=== PATIENT | female | born 1995 | race Caucasian/White ===

== ENCOUNTER 2019-06-26 01:03 | Emergency (ER) | payer OTHER ==
[~2019-06-26] VITALS: Ht 154.9 cm; Wt 48.2 kg
[2019-06-26] MEDS ORDERED: LEXAPRO20 MG PO (01:12)
[2019-06-26] MEDS ORDERED: SPRINTEC 35 MCG1 TAB PO (01:12)
[2019-06-26 01:49] LABS: BASO % 0.5 % (0.0-2.0); EOS # 0.1 (0.0-0.7); EOS % 0.8 % (0-4.0); GRAN # 4.6 (1.4-6.5); GRAN % 58.1 % (42.2-75.2); HEMATOCRIT 37.8 % (37.0-47.0); HEMOGLOBIN 12.6 g/dl (12.5-16.0); LYMPH # 2.7 (1.2-3.4); LYMPH % 34.1 % (20.0-51.0); MEAN CELL VOLUME 94 fl (80.0-100.0); MEAN CORPUSCULAR HEMOGLOBIN 31 pg (27.0-31.0); MEAN CORPUSCULAR HGB CONC 33 g/dl (33.0-37.0); MEAN PLATELET VOLUME 9.8 fl (7.4-10.4); MONO # 0.5 (0.1-0.6); MONO % 6.1 % (1.7-9.3); PLATELET COUNT 220 K/mm3 (130-400); RED BLOOD COUNT 4.02 M/mm3 (4.10-5.30); REDCELL DISTRIBUTION WIDTH-CV 12.5 % (11.5-14.5)
[2019-06-26 02:04] LABS: ALANINE AMINOTRANSFERASE 8 U/L (4-34); ALBUMIN 4.4 gm/dL (3.5-5.0); ALKALINE PHOSPHATASE 45 U/L (50-136); ANION GAP 9 mmol/L (7-16); AST,SGOT 27 U/L (15-37); BILIRUBIN,TOTAL 2.3 mg/dL (0.0-1.0); BLOOD UREA NITROGEN 14 mg/dL (7-17); CALCIUM 9.3 mg/dL (8.4-10.2); CARBON DIOXIDE 23 mmol/L (22-30); CHLORIDE 106 mmol/L (98-107); CREATININE, serum 0.63 (0.52-1.25); GLUCOSE 77 mg/dL (74-106); LIPASE 76 U/L (23-300); POTASSIUM 3.4 mmol/L (3.4-5.0); SODIUM 138 mmol/L (137-145); TOTAL PROTEIN 7.1 gm/dL (6.4-8.2)
[2019-06-26 02:08] LABS: C-REACTIVE PROTEIN < 0.5 mg/dL (0.0-0.9)
[2019-06-26 02:39] LABS: COLLECTION METHOD CLEAN CATCH
[2019-06-26 03:03] LABS: MUCOUS Present /lpf; PH 5 (5-8); URINE APPEARANCE Hazy; URINE BACTERIA None Seen /hpf; URINE BILIRUBIN Negative (NEGATIVE); URINE BLOOD Negative (NEGATIVE); URINE COLOR Yellow; URINE GLUCOSE Negative (NEGATIVE); URINE KETONE 2+ (NEGATIVE); URINE LEUKOCYTE ESTERASE 2+ (NEGATIVE); URINE NITRATE Negative (NEGATIVE); URINE PROTEIN(semi-quant) 2+ (NEGATIVE); URINE RBC 0-2 /hpf
[2019-06-26] MEDS ORDERED: ZOFRAN ODT4 MG PO (03:09)
[2019-06-26] MEDS ORDERED: OMNICEF 300MG300 MG PO (03:09)
[2019-06-26 03:22] VITALS: BP 116/76; PULSE 72; TEMP 98.6
== END 2019-06-26 03:22 | disposition home or self-care (01) ==
LOC: COL.ER 01:03
PROVIDERS: Physician Assistant
DX: N39.0 Urinary tract infection, site not specified (principal); R11.2 Nausea with vomiting, unspecified
CPT/HCPCS: J2405

== ENCOUNTER 2020-02-19 01:34 | Emergency (ER) | payer OTHER ==
[~2020-02-19] VITALS: Ht 154.9 cm; Wt 53.6 kg
[~2020-02-19 01:34] MED LIST: BENTYL 10MG10 MG/CAP PO; LEXAPRO20 MG PO; OMNICEF 300MG300 MG PO; PRILOSEC 20MG20 MG PO; SPRINTEC 35 MCG1 TAB PO; ZOFRAN ODT4 MG PO
[2020-02-19 01:43] VITALS: TEMP 98.3
[2020-02-19 02:25] LABS: STREP SCREEN NEGATIVE
[2020-02-19 03:45] LABS: COLLECTION METHOD CLEAN CATCH
[2020-02-19 04:05] LABS: AMORPHOUS CRYSTAL Present /uL; MUCOUS Present /lpf; PH 7 (5-8); URINE APPEARANCE Cloudy; URINE BACTERIA Rare /hpf; URINE BILIRUBIN Negative (NEGATIVE); URINE BLOOD Negative (NEGATIVE); URINE COLOR Yellow; URINE GLUCOSE Negative (NEGATIVE); URINE KETONE Negative (NEGATIVE); URINE LEUKOCYTE ESTERASE Negative (NEGATIVE); URINE NITRATE Negative (NEGATIVE); URINE PROTEIN(semi-quant) Negative (NEGATIVE); URINE UROBILINOGEN Negative (NEGATIVE)
[2020-02-19 04:35] VITALS: BP 127/78; PULSE 66
== END 2020-02-19 04:35 | disposition home or self-care (01) ==
LOC: COL.ER 01:34
PROVIDERS: Emergency Medicine
DX: O99.511 Diseases of the respiratory system complicating pregnancy, first trimester (principal); J06.9 Acute upper respiratory infection, unspecified; Z20.828 Contact with and (suspected) exposure to other viral communicable diseases; Z3A.12 12 weeks gestation of pregnancy; Z88.1 Allergy status to other antibiotic agents